=== PATIENT | male | born 1945 | race Caucasian/White ===

== ENCOUNTER 2017-07-08 07:00 | Inpatient (IN) | payer OTHER, MEDICARE ==
[2017-07-07 12:45] LABS: BASOPHILS % (AUTO) 0.5 % (0-1); EOSINOPHILS # (AUTO) 0.1 X10'3 (0-0.9); EOSINOPHILS % (AUTO) 1.6 % (0-6); HEMATOCRIT 43.9 % (42.0-52.0); HEMOGLOBIN 15.3 g/dl (14.0-17.9); LYMPHOCYTES # (AUTO) 1.1 X10'3 (1.1-4.8); LYMPHOCYTES % (AUTO) 18.8 % (21-51); MEAN CORPUSCULAR HEMOGLOBIN 32.2 PG (27.0-31.0); MEAN CORPUSCULAR HGB CONC 34.9 % (33.0-36.5); MEAN CORPUSCULAR VOLUME 92.3 FL (78-98); MEAN PLATELET VOLUME 9.1 FL (7.4-10.4); MONOCYTES # (AUTO) 0.3 X10'3 (0-0.9); MONOCYTES % (AUTO) 5.6 % (2-12); NEUTROPHILS # (AUTO) 4.2 X10'3 (1.8-7.7); NEUTROPHILS % (AUTO) 73.5 % (42-75); PLATELET COUNT 135 X10'3 (140-440); RED BLOOD COUNT 4.76 X10'6 (4.70-6.10); RED CELL DISTRIBUTION WIDTH 12.6 % (11.5-14.5); WHITE BLOOD COUNT 5.7 X10'3 (4.5-11.0)
[2017-07-07 12:52] LABS: INR 1.1 INR; PARTIAL THROMBOPLASTIN TIME 26 SECONDS (22-32); PROTHROMBIN TIME 10.9 SECONDS (9.0-12.0)
[2017-07-07 12:53] LABS: ALBUMIN 3.9 G/DL (3.4-5.0); ANION GAP 8 (8-16); BLOOD UREA NITROGEN 17 MG/DL (7-18); CALCIUM 8.6 MG/DL (8.5-10.1); CHLORIDE 107 MMOL/L (99-107); CREATININE 1.13 MG/DL (0.60-1.10); GLUCOSE 125 MG/DL (70-104); POTASSIUM 4.2 MMOL/L (3.5-5.1); SODIUM 145 MMOL/L (135-145); TOTAL CARBON DIOXIDE 30.4 MMOL/L (24-32); eGFR 64 ML/MIN
[2017-07-08] VITALS (21 sets, daily range): BP systolic 96–154; BP diastolic 44–76
[~2017-07-08] VITALS: Ht 177.8 cm; Wt 95.6 kg
[2017-07-08] MEDS ORDERED: ASPI-1265 PO (07:30)
[2017-07-08] MEDS ORDERED: AMLO1TAB PO (07:30)
[2017-07-08] MEDS ORDERED: PANT-47 PO (07:30)
[2017-07-08] MEDS ORDERED: DOXA4TAB3 PO (07:30)
[2017-07-08] MEDS ORDERED: VALS1TAB48 PO (07:30)
[2017-07-08] MEDS ORDERED: OMEG1CAP PO (07:30)
[2017-07-08] MEDS ORDERED: acetylcysteine 200 MG/ml 4ml vial PO PRN (07:46)
[2017-07-08] MEDS ORDERED: diphenhydrAMINE 25mg capsule PO PRN (07:50)
[2017-07-08] MEDS ORDERED: LORazepam 0.5 MG tablet PO ONE (08:45)
[2017-07-08] MEDS: normal saline 1000ml 1,000 ML IV SCH ×2 (09:06→15:36)
[2017-07-08] MEDS ORDERED: midazolam 2 mg/2 ml injection ONE (11:14)
[2017-07-08] MEDS ORDERED: nitroGLYCERIN-Tridil 50MG/D5W 250 ML IV ONE (11:14)
[2017-07-08] MEDS ORDERED: heparin 1,000unit/ml 10ml vial 10 ML ONE (11:15)
[2017-07-08] MEDS ORDERED: LIDOcaine 1%/PF (10mg/ml) 5ml vial ONE ×2 (11:15→11:50)
[2017-07-08] MEDS ORDERED: iohexol 350MG/ML 100ml bottle IV ONE ×3 (11:15→12:33)
[2017-07-08] MEDS ORDERED: iohexol 350 MG/ML 50ML vial IV ONE ×2 (11:15→13:11)
[2017-07-08] MEDS ORDERED: fentaNYL/PF 50MCG/1 ML 2ML syringe ONE (11:15)
[2017-07-08] MEDS ORDERED: atropine 0.1mg/ml 10ml syringe ONE (11:49)
[2017-07-08] MEDS ORDERED: heparin 1,000 UNITS/NS 500ml 500 ML ONE (12:29)
[2017-07-08] MEDS ORDERED: DOPamine 400mg/D5W 250ml 250 ML IV ONE (12:48)
[2017-07-08] MEDS ORDERED: clopidogrel 300mg tablet ONE (13:44)
[2017-07-08] MEDS ORDERED: ticagrelor 90mg tablet ONE (13:51)
[2017-07-08] MEDS ORDERED: ticagrelor 90mg tablet PO ONE (14:00)
[2017-07-08] MEDS ORDERED: heparin 10,000 units/1 ML INJ IV ONE (14:40)
[2017-07-08] MEDS ORDERED: heparin 10,000 units/1 ML INJ IV PRN (14:40)
[2017-07-08] MEDS ORDERED: aspirin 325mg tablet PO ONE (14:45)
[2017-07-08] MEDS ORDERED: magnesium hydroxide 30ml (MOM) UD suspension PO PRN (14:50)
[2017-07-08] MEDS ORDERED: OXAZEpam 15mg capsule PO PRN (14:50)
[2017-07-08] MEDS ORDERED: acetaminophen 325mg tablet PO PRN (14:50)
[2017-07-08] MEDS ORDERED: proCHLORperazine 10 MG/2 ml inj IV PRN (14:50)
[2017-07-08] MEDS ORDERED: cyclobenzaprine 10mg tablet PO PRN (14:50)
[2017-07-08 15:25] LABS: ISTAT HGB ART 13.9 g/dl (14.0-18.0); ISTAT Hct ART 41 %PCV (42-52); ISTAT O2 SATURATION ARTERIAL 95 % (95-98); ISTAT SOURCE ART
[2017-07-08 15:25] LABS: ISTAT Hct MIX 42 %PCV (42-52); ISTAT O2 SATURATION MIX VENOUS 77 % (60-80); ISTAT SOURCE MIX
[2017-07-08] MEDS: DOPamine 400MG/D5W 250ML CRITICAL CARE IV SCH (15:50)
[2017-07-08 18:42] LABS: BASOPHILS % (AUTO) 0.2 % (0-1); EOSINOPHILS # (AUTO) 0.1 X10'3 (0-0.9); EOSINOPHILS % (AUTO) 1.1 % (0-6); HEMATOCRIT 46.5 % (42.0-52.0); HEMOGLOBIN 16.1 g/dl (14.0-17.9); LYMPHOCYTES # (AUTO) 0.8 X10'3 (1.1-4.8); LYMPHOCYTES % (AUTO) 8.8 % (21-51); MEAN CORPUSCULAR HEMOGLOBIN 31.9 PG (27.0-31.0); MEAN CORPUSCULAR HGB CONC 34.7 % (33.0-36.5); MEAN CORPUSCULAR VOLUME 92.1 FL (78-98); MEAN PLATELET VOLUME 8.5 FL (7.4-10.4); MONOCYTES # (AUTO) 0.4 X10'3 (0-0.9); MONOCYTES % (AUTO) 4.4 % (2-12); NEUTROPHILS # (AUTO) 8.3 X10'3 (1.8-7.7); NEUTROPHILS % (AUTO) 85.5 % (42-75); PLATELET COUNT 148 X10'3 (140-440); RED BLOOD COUNT 5.06 X10'6 (4.70-6.10); RED CELL DISTRIBUTION WIDTH 12.8 % (11.5-14.5); WHITE BLOOD COUNT 9.7 X10'3 (4.5-11.0)
[2017-07-08] MEDS: docusate sod 100mg capsule PO SCH (20:00)
[2017-07-08] MEDS: ticagrelor 90mg tablet PO SCH (20:53)
[2017-07-08] MEDS: omega-3 acid ethyl esters 1GM capsule PO SCH (20:53)
[2017-07-09] VITALS (20 sets, daily range): BP systolic 93–153; BP diastolic 45–73
[2017-07-09] MEDS: normal saline 1000ml 1,000 ML IV SCH (03:50)
[2017-07-09] MEDS ORDERED: fentaNYL/PF 50MCG/1 ML 2ML syringe ONE (06:18)
[2017-07-09] MEDS ORDERED: midazolam 2 mg/2 ml injection ONE (06:18)
[2017-07-09] MEDS ORDERED: nitroGLYCERIN-Tridil 50MG/D5W 250 ML IV ONE (06:18)
[2017-07-09] MEDS ORDERED: iohexol 350 MG/1 ML 200ml bottle ONE (06:19)
[2017-07-09] MEDS ORDERED: heparin 1,000unit/ml 10ml vial 10 ML ONE (06:19)
[2017-07-09] MEDS ORDERED: LIDOcaine 1%/PF (10mg/ml) 5ml vial ONE (06:19)
[2017-07-09] MEDS: DOPamine 400MG/D5W 250ML CRITICAL CARE IV SCH (06:30)
[2017-07-09 06:35] LABS: BASOPHILS % (AUTO) 0 % (0-1); EOSINOPHILS % (AUTO) 0.1 % (0-6); HEMATOCRIT 42.1 % (42.0-52.0); HEMOGLOBIN 14.9 g/dl (14.0-17.9); LYMPHOCYTES # (AUTO) 0.8 X10'3 (1.1-4.8); LYMPHOCYTES % (AUTO) 8.6 % (21-51); MEAN CORPUSCULAR HEMOGLOBIN 32.3 PG (27.0-31.0); MEAN CORPUSCULAR HGB CONC 35.4 % (33.0-36.5); MEAN CORPUSCULAR VOLUME 91.2 FL (78-98); MEAN PLATELET VOLUME 8.7 FL (7.4-10.4); MONOCYTES # (AUTO) 0.5 X10'3 (0-0.9); MONOCYTES % (AUTO) 4.7 % (2-12); NEUTROPHILS # (AUTO) 8.3 X10'3 (1.8-7.7); NEUTROPHILS % (AUTO) 86.6 % (42-75); PLATELET COUNT 144 X10'3 (140-440); RED BLOOD COUNT 4.62 X10'6 (4.70-6.10); RED CELL DISTRIBUTION WIDTH 12.5 % (11.5-14.5); WHITE BLOOD COUNT 9.6 X10'3 (4.5-11.0)
[2017-07-09] MEDS ORDERED: atropine 0.1mg/ml 10ml syringe ONE (06:47)
[2017-07-09 06:56] LABS: ALBUMIN 3.4 G/DL (3.4-5.0); ANION GAP 9 (8-16); BLOOD UREA NITROGEN 17 MG/DL (7-18); BUN/CREATININE RATIO 15.6 (5.4-32.0); CALCIUM 8.3 MG/DL (8.5-10.1); CHLORIDE 108 MMOL/L (99-107); CHOL/HDL RATIO 2.6 (0.00-4.99); CHOLESTEROL 105 MG/DL (0-200); CREATININE 1.09 MG/DL (0.60-1.10); GLUCOSE 103 MG/DL (70-104); HDL CHOLESTEROL 40 MG/DL (35-60); LDL CHOLESTEROL 56 MG/DL (50-100); POTASSIUM 3.4 MMOL/L (3.5-5.1); SODIUM 144 MMOL/L (135-145); TOTAL CARBON DIOXIDE 26.9 MMOL/L (24-32); TRIGLYCERIDES 53 MG/DL (20-135); eGFR 67 ML/MIN
[2017-07-09] MEDS ORDERED: ticagrelor 90mg tablet ONE (07:17)
[2017-07-09] MEDS ORDERED: HYDROchlorothiazide 12.5mg capsule PO SCH (08:00)
[2017-07-09] MEDS ORDERED: amLODIPine 5mg tablet PO SCH (08:00)
[2017-07-09] MEDS: ticagrelor 90mg tablet PO SCH (08:00)
[2017-07-09] MEDS ORDERED: HYDROCHLOROTHIAZIDE PO SCH (08:00)
[2017-07-09] MEDS ORDERED: atorvastatin 10mg tablet PO SCH (08:00)
[2017-07-09] MEDS ORDERED: VALSARTAN PO SCH (08:00)
[2017-07-09] MEDS ORDERED: doxazosin mesylate 2mg tablet PO SCH (08:00)
[2017-07-09] MEDS ORDERED: aspirin 81mg tab.chew PO SCH (08:00)
[2017-07-09] MEDS ORDERED: pantoprazole 40mg Tablet.DR PO SCH (08:00)
[2017-07-09] MEDS ORDERED: iohexol 350MG/ML 100ml bottle IV ONE (08:02)
[2017-07-09] MEDS ORDERED: aspirin 325mg tablet PO SCH (08:30)
[2017-07-09] MEDS: docusate sod 100mg capsule PO SCH (09:02)
[2017-07-09] MEDS: omega-3 acid ethyl esters 1GM capsule PO SCH (09:03)
[2017-07-09] MEDS ORDERED: ATOR10TA PO (09:24)
[2017-07-09] MEDS ORDERED: TICA90TA PO (09:24)
== END 2017-07-09 17:30 | disposition home or self-care (01) | DRG 246 ==
LOC: SSTAY O 07:00 → ICU 2S 18:03
PROVIDERS: ADMIT Internal Medicine Cardiovascular Disease; ATTEND Internal Medicine Cardiovascular Disease
PROC: 4A023N8 Measurement of Cardiac Sampling and Pressure, Bilateral, Percutaneous Approach (ICD-10-PCS; principal; 2017-07-08)
PROC: 027034Z Dilation of Coronary Artery, One Artery with Drug-eluting Intraluminal Device, Percutaneous Approach (ICD-10-PCS; 2017-07-08)
PROC: B2111ZZ Fluoroscopy of Multiple Coronary Arteries using Low Osmolar Contrast (ICD-10-PCS; 2017-07-08)
PROC: B2151ZZ Fluoroscopy of Left Heart using Low Osmolar Contrast (ICD-10-PCS; 2017-07-08)
PROC: B2131ZZ Fluoroscopy of Multiple Coronary Artery Bypass Grafts using Low Osmolar Contrast (ICD-10-PCS; 2017-07-08)
PROC: 027136Z Dilation of Coronary Artery, Two Arteries with Three Drug-eluting Intraluminal Devices, Percutaneous Approach (ICD-10-PCS; 2017-07-09)
DX: I25.10 Atherosclerotic heart disease of native coronary artery without angina pectoris (principal); E78.5 Hyperlipidemia, unspecified; K21.9 Gastro-esophageal reflux disease without esophagitis; M19.90 Unspecified osteoarthritis, unspecified site; G47.30 Sleep apnea, unspecified; I10 Essential (primary) hypertension; Z79.82 Long term (current) use of aspirin; Z79.899 Other long term (current) drug therapy; Z95.1 Presence of aortocoronary bypass graft; Z88.5 Allergy status to narcotic agent
CPT/HCPCS: 93461; C9600; C9604; C9605; 36415; 80048; 80061; 82803; 85014; 85025; 85347; 85610; 85730; 93005; 99152; 99153; A4620; A6257; A6449; C1725; C1760; C1769; C1874; C1887; C1894; J0461; J0780; J1265; J1644; J2001; J2250; J3010; J3490; J7030; Q0163; Q9967

== ENCOUNTER 2018-06-30 06:03 | Day surgery (SDC) | payer OTHER, MEDICARE ==
[2018-06-29 11:10] LABS: BASOPHILS % (AUTO) 0.7 % (0-1); EOSINOPHILS % (AUTO) 0.7 % (0-6); HEMATOCRIT 44.7 % (42.0-52.0); HEMOGLOBIN 15.6 g/dl (14.0-17.9); LYMPHOCYTES # (AUTO) 0.9 X10'3 (1.1-4.8); LYMPHOCYTES % (AUTO) 14.8 % (21-51); MEAN CORPUSCULAR HEMOGLOBIN 32.4 PG (27.0-31.0); MEAN CORPUSCULAR VOLUME 92.5 FL (78-98); MEAN PLATELET VOLUME 8.7 FL (7.4-10.4); MONOCYTES # (AUTO) 0.4 X10'3 (0-0.9); MONOCYTES % (AUTO) 6.9 % (2-12); NEUTROPHILS # (AUTO) 4.5 X10'3 (1.8-7.7); NEUTROPHILS % (AUTO) 76.9 % (42-75); PLATELET COUNT 149 X10'3 (140-440); RED BLOOD COUNT 4.83 X10'6 (4.70-6.10); RED CELL DISTRIBUTION WIDTH 12.8 % (11.5-14.5); WHITE BLOOD COUNT 5.9 X10'3 (4.5-11.0)
[2018-06-29 11:15] LABS: ALBUMIN 3.9 G/DL (3.4-5.0); ANION GAP 4 (8-16); BLOOD UREA NITROGEN 16 MG/DL (7-18); BUN/CREATININE RATIO 14.5 (5.4-32.0); CHLORIDE 107 MMOL/L (99-107); GLUCOSE 112 MG/DL (70-104); POTASSIUM 4.1 MMOL/L (3.5-5.1); SODIUM 144 MMOL/L (135-145); TOTAL CARBON DIOXIDE 32.9 MMOL/L (24-32); eGFR 66 ML/MIN
[2018-06-29 11:25] LABS: INR 1.1 INR; PARTIAL THROMBOPLASTIN TIME 25 SECONDS (22-32); PROTHROMBIN TIME 11.1 SECONDS (9.0-12.0)
[~2018-06-30] VITALS: Ht 177.8 cm; Wt 96.4 kg
[2018-06-30] VITALS (21 sets, daily range): BP systolic 95–141; BP diastolic 46–86
[~2018-06-30 06:03] MED LIST: AMLO1TAB62 PO; ASPI-1265 PO; ATOR10TA PO; DOXA4TAB3 PO; OMEG1CAP PO; PANT-47 PO; TICA90TA PO; VALS1TAB48 PO
[2018-06-30] MEDS ORDERED: diphenhydrAMINE 25mg capsule PO PRN (06:20)
[2018-06-30] MEDS ORDERED: acetylcysteine 200 MG/ml 4ml vial PO ONE (06:20)
[2018-06-30] MEDS ORDERED: PRAS10TA6 PO (06:28)
[2018-06-30] MEDS ORDERED: LORazepam 0.5 MG tablet PO PRN (06:30)
[2018-06-30] MEDS ORDERED: LIDOcaine 1% (10mg/ml)w/preservative injection 20ml MDV ONE (07:44)
[2018-06-30] MEDS ORDERED: iohexol 350MG/ML 100ml bottle IV ONE ×4 (07:44→09:14)
[2018-06-30] MEDS ORDERED: fentaNYL/PF 50MCG/1 ML 2ML syringe ONE (07:44)
[2018-06-30] MEDS ORDERED: iohexol 350 MG/ML 50ML vial IV ONE (07:44)
[2018-06-30] MEDS ORDERED: nitroGLYCERIN-Tridil 50MG/D5W 250 ML IV ONE (07:44)
[2018-06-30] MEDS ORDERED: heparin 1,000unit/ml 10ml vial 10 ML ONE ×2 (07:44→09:07)
[2018-06-30] MEDS ORDERED: midazolam 2 mg/2 ml injection ONE ×2 (07:44→09:14)
[2018-06-30] MEDS ORDERED: heparin 25,000 UNIT/250ml bag 250 ML IV ONE (08:57)
[2018-06-30] MEDS ORDERED: clopidogrel 300mg tablet ONE ×2 (09:34→09:48)
[2018-06-30] MEDS ORDERED: normal saline 1000ml 1,000 ML IV ONE (10:30)
[2018-06-30] MEDS ORDERED: acetaminophen 325mg tablet PO PRN (10:35)
[2018-06-30] MEDS ORDERED: magnesium hydroxide 30ml (MOM) UD suspension PO PRN (10:35)
[2018-06-30] MEDS ORDERED: aspirin 325mg tablet PO ONE (10:35)
[2018-06-30] MEDS ORDERED: cyclobenzaprine 10mg tablet PO PRN (10:35)
[2018-06-30] MEDS ORDERED: proCHLORperazine 10 MG/2 ml inj IV PRN (10:35)
[2018-06-30] MEDS ORDERED: OXAZEpam 15mg capsule PO PRN (10:35)
[2018-06-30] MEDS ORDERED: HYDROcodone/acetaminophen 10/325mg tab PO PRN ×2 (11:55)
--- NOTE | 2018-06-30 17:15 | NUR ---
Problems reprioritized. Patient report given, questions answered & plan of care reviewed with RANDY PÉREZ.
[2018-06-30] MEDS ORDERED: docusate sod 100mg capsule PO SCH (20:00)
[2018-06-30] MEDS ORDERED: acetylcysteine 200 MG/ml 4ml vial PO SCH (20:00)
[2018-07-01] MEDS ORDERED: aspirin 325mg tablet PO SCH (08:00)
[2018-07-01] MEDS ORDERED: PRASUGREL 10 MG PO SCH (08:00)
== END 2018-06-30 19:25 | disposition home or self-care (01) ==
LOC: SSTAY O 06:03
PROVIDERS: ATTEND Internal Medicine Cardiovascular Disease
DX: I10 Essential (primary) hypertension (principal); E78.5 Hyperlipidemia, unspecified; I25.10 Atherosclerotic heart disease of native coronary artery without angina pectoris; Z95.1 Presence of aortocoronary bypass graft; K21.9 Gastro-esophageal reflux disease without esophagitis; Z88.5 Allergy status to narcotic agent
CPT/HCPCS: 36415; 80048; 85025; 85347; 85610; 85730; 92920; 93005; 93459; 99152; 99153; A6257; J1644; J2001; J2250; J3010; J7030; Q0163; Q9967; A4620; C1725; C1769; C1894; J3490

== ENCOUNTER 2019-07-06 08:48 | Day surgery (SDC) | payer OTHER, MEDICARE ==
[2019-07-05 12:26] LABS: BASOPHILS % (AUTO) 0.4 % (0-1); EOSINOPHILS # (AUTO) 0.1 X10'3 (0-0.9); EOSINOPHILS % (AUTO) 0.9 % (0-6); HEMATOCRIT 44.4 % (42.0-52.0); HEMOGLOBIN 15.5 g/dl (14.0-17.9); LYMPHOCYTES % (AUTO) 17.2 % (21-51); MEAN CORPUSCULAR HEMOGLOBIN 32.4 PG (27.0-31.0); MEAN CORPUSCULAR HGB CONC 34.9 g/dL (33.0-36.5); MEAN CORPUSCULAR VOLUME 92.8 FL (78-98); MEAN PLATELET VOLUME 9.1 FL (7.4-10.4); MONOCYTES # (AUTO) 0.4 X10'3 (0-0.9); MONOCYTES % (AUTO) 6.2 % (2-12); NEUTROPHILS # (AUTO) 4.3 X10'3 (1.8-7.7); NEUTROPHILS % (AUTO) 75.3 % (42-75); PLATELET COUNT 134 X10'3 (140-440); RED BLOOD COUNT 4.78 X10'6 (4.70-6.10); RED CELL DISTRIBUTION WIDTH 12.8 % (11.5-14.5); WHITE BLOOD COUNT 5.7 X10'3 (4.5-11.0)
[2019-07-05 12:34] LABS: ALBUMIN 3.9 G/DL (3.4-5.0); ANION GAP 6 (8-16); BLOOD UREA NITROGEN 17 MG/DL (7-18); BUN/CREATININE RATIO 16.3 (5.4-32.0); CALCIUM 8.2 MG/DL (8.5-10.1); CHLORIDE 107 MMOL/L (99-107); CREATININE 1.04 MG/DL (0.60-1.10); GLUCOSE 144 MG/DL (70-104); POTASSIUM 3.8 MMOL/L (3.5-5.1); SODIUM 144 MMOL/L (135-145); TOTAL CARBON DIOXIDE 30.8 MMOL/L (24-32); eGFR 70 ML/MIN
[2019-07-05 12:38] LABS: PARTIAL THROMBOPLASTIN TIME 26 SECONDS (22-32)
[2019-07-06] VITALS (9 sets, daily range): BP systolic 108–131; BP diastolic 42–67
[~2019-07-06] VITALS: Ht 177.8 cm; Wt 96.7 kg
[~2019-07-06 08:48] MED LIST changes: -ATOR10TA PO; +PRAS10TA6 PO; -TICA90TA PO
[2019-07-06] MEDS ORDERED: cefazolin/dext.iso 2gm/100ml 100 ML IV ONE (09:10)
[2019-07-06] MEDS ORDERED: normal saline 1000ml 1,000 ML IV SCH (09:10)
[2019-07-06] MEDS ORDERED: VITA-268 PO (09:22)
[2019-07-06] MEDS ORDERED: TADA5TAB2 PO (09:22)
[2019-07-06] MEDS ORDERED: CYAN1TAB41 PO (09:22)
[2019-07-06] MEDS ORDERED: OLME1TAB84 PO (09:22)
[2019-07-06] MEDS ORDERED: APIX5TAB3 PO (09:22)
[2019-07-06] MEDS ORDERED: AMLO1TAB23 PO (09:22)
[2019-07-06] MEDS ORDERED: midazolam 2 mg/2 ml injection ONE ×2 (13:10→14:37)
[2019-07-06] MEDS ORDERED: fentaNYL/PF 50MCG/1 ML 2ML syringe ONE ×2 (13:10→14:37)
[2019-07-06] MEDS ORDERED: ceFAZolin 1000mg inj ONE (13:10)
[2019-07-06] MEDS ORDERED: LIDOcaine 1% W/epiNEPHrine 1:100,000 20ml vial ONE (13:11)
[2019-07-06] MEDS ORDERED: diphenhydrAMINE 50 mg/ml inj ONE (14:11)
[2019-07-06] MEDS ORDERED: vancomycin/NS 1 GM ADD-VANTAGE 250 ML X 1 DOSE IV ONE (16:00)
--- NOTE | 2019-07-06 20:36 | NUR ---
Patient called back and stated that his prescription was not faxed. I asked if he could hand them over the physical prescription (yellow sheet) and he said no the pharmacist would not take it. I called his requested pharmacy [facility] on [address], and spoke with pharmacist over the phone, called in his sotalol and keflex orders per dr. parker. Patients was notified that they were personally called in.
== END 2019-07-06 20:00 | disposition home or self-care (01) ==
LOC: SSTAY O 08:48
PROVIDERS: ATTEND Internal Medicine Cardiovascular Disease
DX: I49.5 Sick sinus syndrome (principal); I48.91 Unspecified atrial fibrillation; I10 Essential (primary) hypertension; I48.3 Typical atrial flutter; I25.10 Atherosclerotic heart disease of native coronary artery without angina pectoris; I25.2 Old myocardial infarction; E78.5 Hyperlipidemia, unspecified; K21.9 Gastro-esophageal reflux disease without esophagitis; I48.92 Unspecified atrial flutter; Z79.899 Other long term (current) drug therapy; Z95.5 Presence of coronary angioplasty implant and graft; Z88.6 Allergy status to analgesic agent; Z98.890 Other specified postprocedural states
CPT/HCPCS: 33208; 36415; 71046; 80048; 85025; 85610; 85730; 93005; 99152; 99153; C1785; C1894; C1898; J0690; J1200; J2250; J3010; J3370; J7030; A4565; A4620

== ENCOUNTER 2019-07-27 07:44 | Day surgery (SDC) | payer OTHER, MEDICARE ==
[2019-07-26 10:28] LABS: BASOPHILS % (AUTO) 0.5 % (0-1); EOSINOPHILS # (AUTO) 0.1 X10'3 (0-0.9); EOSINOPHILS % (AUTO) 1.8 % (0-6); HEMATOCRIT 47.3 % (42.0-52.0); HEMOGLOBIN 16.3 g/dl (14.0-17.9); LYMPHOCYTES # (AUTO) 1.2 X10'3 (1.1-4.8); LYMPHOCYTES % (AUTO) 17.5 % (21-51); MEAN CORPUSCULAR HEMOGLOBIN 32.4 PG (27.0-31.0); MEAN CORPUSCULAR HGB CONC 34.5 g/dL (33.0-36.5); MEAN CORPUSCULAR VOLUME 93.7 FL (78-98); MONOCYTES # (AUTO) 0.5 X10'3 (0-0.9); NEUTROPHILS # (AUTO) 4.9 X10'3 (1.8-7.7); NEUTROPHILS % (AUTO) 73.2 % (42-75); PLATELET COUNT 156 X10'3 (140-440); RED BLOOD COUNT 5.04 X10'6 (4.70-6.10); RED CELL DISTRIBUTION WIDTH 12.5 % (11.5-14.5); WHITE BLOOD COUNT 6.7 X10'3 (4.5-11.0)
[2019-07-26 10:38] LABS: ALBUMIN 3.9 G/DL (3.4-5.0); ANION GAP 3 (8-16); BLOOD UREA NITROGEN 17 MG/DL (7-18); BUN/CREATININE RATIO 12.6 (5.4-32.0); CALCIUM 8.7 MG/DL (8.5-10.1); CHLORIDE 105 MMOL/L (99-107); CREATININE 1.35 MG/DL (0.60-1.10); GLUCOSE 101 MG/DL (70-104); POTASSIUM 3.6 MMOL/L (3.5-5.1); SODIUM 142 MMOL/L (135-145); TOTAL CARBON DIOXIDE 34.5 MMOL/L (24-32); eGFR 52 ML/MIN
[~2019-07-27] VITALS: Ht 177.8 cm; Wt 95.3 kg
[2019-07-27] VITALS (12 sets, daily range): BP systolic 94–118; BP diastolic 54–76
[~2019-07-27 07:44] MED LIST changes: +AMLO1TAB23 PO; -AMLO1TAB62 PO; +APIX5TAB3 PO; +CYAN1TAB41 PO; +OLME1TAB84 PO; -PRAS10TA6 PO; +TADA5TAB2 PO; -VALS1TAB48 PO; +VITA-268 PO
[2019-07-27] MEDS ORDERED: LORazepam 0.5 MG tablet PO ONE (08:00)
[2019-07-27] MEDS ORDERED: atropine 0.1mg/ml 10ml syringe IV ONE (08:00)
[2019-07-27] MEDS ORDERED: morphine 10mg/ml inj. IV ONE (08:00)
[2019-07-27] MEDS ORDERED: normal saline 1000ml 1,000 ML IV SCH (08:00)
[2019-07-27] MEDS ORDERED: amiodarone in dextrose, iso-osm 150mg/100ml bag IV ONE (08:00)
[2019-07-27] MEDS ORDERED: diphenhydrAMINE 25mg capsule PO ONE (08:00)
[2019-07-27] MEDS ORDERED: MIDAZolam 1mg/ml 10ml vial IV ONE (08:00)
[2019-07-27] MEDS ORDERED: PRAS10TA6 PO (08:32)
[2019-07-27] MEDS ORDERED: SOTA80TA PO (08:33)
== END 2019-07-27 11:05 | disposition home or self-care (01) ==
LOC: SSTAY O 07:44 → MED 3N 07:44 → SSTAY O 11:05
PROVIDERS: ATTEND Internal Medicine Cardiovascular Disease
DX: I48.3 Typical atrial flutter (principal); E78.5 Hyperlipidemia, unspecified; I10 Essential (primary) hypertension; I49.5 Sick sinus syndrome; M19.90 Unspecified osteoarthritis, unspecified site; K21.9 Gastro-esophageal reflux disease without esophagitis; Z95.5 Presence of coronary angioplasty implant and graft; Z95.0 Presence of cardiac pacemaker; I25.2 Old myocardial infarction; Z85.46 Personal history of malignant neoplasm of prostate; Z79.899 Other long term (current) drug therapy; Z88.5 Allergy status to narcotic agent
CPT/HCPCS: 36415; 80048; 85025; 85610; 92960; 93005; J2250; J2270; GO378

== ENCOUNTER 2019-08-23 11:28 | Outpatient (CLI) | payer OTHER, MEDICARE ==
[~2019-08-23 11:28] MED LIST changes: -ASPI-1265 PO; +PRAS10TA6 PO; +SOTA80TA PO
== END 2019-08-23 23:59 | disposition home or self-care (01) ==
LOC: RAD 11:28
PROVIDERS: ATTEND Internal Medicine Cardiovascular Disease
DX: R06.02 Shortness of breath (principal)
CPT/HCPCS: 71046

== ENCOUNTER 2019-10-05 06:55 | Day surgery (SDC) | payer OTHER, MEDICARE ==
[2019-10-04 15:00] LABS: BASOPHILS % (AUTO) 0.3 % (0-1); EOSINOPHILS # (AUTO) 0.1 X10'3 (0-0.9); EOSINOPHILS % (AUTO) 0.9 % (0-6); HEMATOCRIT 43.4 % (42.0-52.0); HEMOGLOBIN 14.8 g/dl (14.0-17.9); LYMPHOCYTES # (AUTO) 1.3 X10'3 (1.1-4.8); LYMPHOCYTES % (AUTO) 18.6 % (21-51); MEAN CORPUSCULAR HEMOGLOBIN 32.2 PG (27.0-31.0); MEAN CORPUSCULAR HGB CONC 34.1 g/dL (33.0-36.5); MEAN CORPUSCULAR VOLUME 94.5 FL (78-98); MEAN PLATELET VOLUME 9.1 FL (7.4-10.4); MONOCYTES # (AUTO) 0.4 X10'3 (0-0.9); MONOCYTES % (AUTO) 6.5 % (2-12); NEUTROPHILS # (AUTO) 5.1 X10'3 (1.8-7.7); NEUTROPHILS % (AUTO) 73.7 % (42-75); PLATELET COUNT 138 X10'3 (140-440); RED BLOOD COUNT 4.59 X10'6 (4.70-6.10); RED CELL DISTRIBUTION WIDTH 12.8 % (11.5-14.5); WHITE BLOOD COUNT 6.9 X10'3 (4.5-11.0)
[2019-10-04 15:11] LABS: ANION GAP 7 (8-16); BLOOD UREA NITROGEN 13 MG/DL (7-18); BUN/CREATININE RATIO 13.7 (5.4-32.0); CALCIUM 8.9 MG/DL (8.5-10.1); CHLORIDE 107 MMOL/L (99-107); CREATININE 0.95 MG/DL (0.60-1.10); GLUCOSE 96 MG/DL (70-104); POTASSIUM 3.6 MMOL/L (3.5-5.1); SODIUM 146 MMOL/L (135-145); TOTAL CARBON DIOXIDE 31.8 MMOL/L (24-32); eGFR 78 ML/MIN
[2019-10-04 15:13] LABS: PARTIAL THROMBOPLASTIN TIME 26 SECONDS (22-32)
[~2019-10-05] VITALS: Ht 182.9 cm; Wt 96.0 kg
[2019-10-05] VITALS (11 sets, daily range): BP systolic 102–139; BP diastolic 40–68
[2019-10-05] MEDS ORDERED: cefazolin/dext.iso 2gm/50ml 50 ML IV ONE (07:20)
[2019-10-05] MEDS ORDERED: normal saline 1,000 ML IV SCH (07:20)
[2019-10-05] MEDS ORDERED: ASPI81TA52 PO (07:38)
[2019-10-05] MEDS ORDERED: HYDR12.55 PO (07:38)
[2019-10-05] MEDS ORDERED: LOSA25TA96 PO (07:38)
[2019-10-05] MEDS ORDERED: ceFAZolin 1000mg inj ONE (08:30)
[2019-10-05] MEDS ORDERED: midazolam 2 mg/2 ml injection ONE (08:30)
[2019-10-05] MEDS ORDERED: fentaNYL/PF 50MCG/1 ML 2ML syringe ONE (08:30)
[2019-10-05] MEDS ORDERED: LIDOcaine 1% W/epiNEPHrine 1:100,000 20ml vial ONE (08:30)
[2019-10-05] MEDS ORDERED: HYDROcodone/acetaminophen 10/325mg tab PO PRN (11:00)
[2019-10-05] MEDS ORDERED: HYDROcodone/acetaminophen 5mg/325mg tablet PO PRN (11:00)
[2019-10-05] MEDS ORDERED: vancomycin/NS 1 GM ADD-VANTAGE 250 ML X 1 DOSE IV ONE (11:00)
== END 2019-10-05 14:55 | disposition home or self-care (01) ==
LOC: SSTAY O 06:55
PROVIDERS: ATTEND Internal Medicine Cardiovascular Disease
DX: T82.190A Other mechanical complication of cardiac electrode, initial encounter (principal); I49.5 Sick sinus syndrome; I10 Essential (primary) hypertension; E78.5 Hyperlipidemia, unspecified; I25.10 Atherosclerotic heart disease of native coronary artery without angina pectoris; M19.90 Unspecified osteoarthritis, unspecified site; I48.3 Typical atrial flutter; K21.9 Gastro-esophageal reflux disease without esophagitis; Z85.46 Personal history of malignant neoplasm of prostate; Z95.5 Presence of coronary angioplasty implant and graft; Z95.0 Presence of cardiac pacemaker; Z79.82 Long term (current) use of aspirin; Z88.5 Allergy status to narcotic agent; Z79.01 Long term (current) use of anticoagulants; Z79.899 Other long term (current) drug therapy; Y83.8 Other surgical procedures as the cause of abnormal reaction of the patient, or of later complication, without mention of misadventure at the time of the procedure; Y92.89 Other specified places as the place of occurrence of the external cause
CPT/HCPCS: 33215; 36415; 80048; 85025; 85610; 85730; 99152; 99153; J0690; J2250; J3010; J3370; J7030; A4565; A4620; A6449

== ENCOUNTER 2020-01-11 12:20 | Emergency (ER) | payer OTHER, MEDICARE ==
[~2020-01-11] VITALS: Ht 177.8 cm; Wt 96.7 kg
[~2020-01-11 12:20] MED LIST changes: +ASPI81TA52 PO; +HYDR12.55 PO; +LOSA25TA96 PO; -OLME1TAB84 PO; -PRAS10TA6 PO; -SOTA80TA PO; -TADA5TAB2 PO
[2020-01-11 13:36] LABS: BASOPHILS % (AUTO) 0.3 % (0-1); EOSINOPHILS % (AUTO) 0.6 % (0-6); HEMATOCRIT 44.6 % (42.0-52.0); HEMOGLOBIN 15.5 g/dl (14.0-17.9); LYMPHOCYTES % (AUTO) 12.6 % (21-51); MEAN CORPUSCULAR HEMOGLOBIN 32.5 PG (27.0-31.0); MEAN CORPUSCULAR HGB CONC 34.9 g/dL (33.0-36.5); MEAN PLATELET VOLUME 8.1 FL (7.4-10.4); MONOCYTES # (AUTO) 0.5 X10'3 (0-0.9); MONOCYTES % (AUTO) 5.8 % (2-12); NEUTROPHILS # (AUTO) 6.4 X10'3 (1.8-7.7); NEUTROPHILS % (AUTO) 80.7 % (42-75); PLATELET COUNT 140 X10'3 (140-440); RED BLOOD COUNT 4.79 X10'6 (4.70-6.10); RED CELL DISTRIBUTION WIDTH 12.6 % (11.5-14.5); WHITE BLOOD COUNT 7.9 X10'3 (4.5-11.0)
[2020-01-11 13:52] LABS: ALANINE AMINOTRANSFERASE 35 U/L (12-78); ALBUMIN 4.1 G/DL (3.4-5.0); ALBUMIN/GLOBULIN RATIO 1.4 (1.1-1.5); ALKALINE PHOSPHATASE 138 IU/L (46-116); ANION GAP 9 (8-16); ASPARTATE AMINO TRANSFERASE 20 U/L (10-37); BILIRUBIN,TOTAL 0.8 MG/DL (0.1-1.0); BLOOD UREA NITROGEN 27 MG/DL (7-18); BUN/CREATININE RATIO 30.7 (5.4-32.0); CALCIUM 9.1 MG/DL (8.5-10.1); CHLORIDE 104 MMOL/L (99-107); CREATININE 0.88 MG/DL (0.60-1.10); GLUCOSE 139 MG/DL (70-104); POTASSIUM 3.9 MMOL/L (3.5-5.1); SODIUM 141 MMOL/L (135-145); TOTAL CARBON DIOXIDE 28.5 MMOL/L (24-32); eGFR 85 ML/MIN
[2020-01-11 16:11] VITALS: BP 145/64
== END 2020-01-11 20:11 | disposition home or self-care (01) ==
LOC: ER 12:21
DX: R07.89 Other chest pain (principal); R42 Dizziness and giddiness; I48.91 Unspecified atrial fibrillation; I25.10 Atherosclerotic heart disease of native coronary artery without angina pectoris; I25.2 Old myocardial infarction; Z98.890 Other specified postprocedural states; Z88.5 Allergy status to narcotic agent; Z88.8 Allergy status to other drugs, medicaments and biological substances; Z79.82 Long term (current) use of aspirin; Z79.899 Other long term (current) drug therapy
CPT/HCPCS: 36415; 71045; 80053; 83880; 84484; 85025; 93005; 99285

== ENCOUNTER 2020-06-29 10:42 | Day surgery (SDC) | payer OTHER, MEDICARE ==
[2020-06-29] VITALS (12 sets, daily range): BP systolic 94–152; BP diastolic 43–66
[~2020-06-29] VITALS: Ht 177.8 cm; Wt 101.1 kg
[2020-06-29] MEDS ORDERED: TADA5TAB13 PO (11:35)
[2020-06-29] MEDS ORDERED: DILT-36 PO (11:35)
[2020-06-29] MEDS ORDERED: LOSA100T57 PO (11:35)
[2020-06-29 11:49] LABS: BASOPHILS % (AUTO) 0.6 % (0-1); EOSINOPHILS # (AUTO) 0.1 X10'3 (0-0.9); EOSINOPHILS % (AUTO) 1.4 % (0-6); HEMATOCRIT 41.9 % (42.0-52.0); HEMOGLOBIN 14.7 g/dl (14.0-17.9); LYMPHOCYTES # (AUTO) 1.2 X10'3 (1.1-4.8); LYMPHOCYTES % (AUTO) 18.4 % (21-51); MEAN CORPUSCULAR HEMOGLOBIN 32.4 PG (27.0-31.0); MEAN CORPUSCULAR HGB CONC 35.1 g/dL (33.0-36.5); MEAN CORPUSCULAR VOLUME 92.3 FL (78-98); MEAN PLATELET VOLUME 8.6 FL (7.4-10.4); MONOCYTES # (AUTO) 0.4 X10'3 (0-0.9); MONOCYTES % (AUTO) 5.9 % (2-12); NEUTROPHILS # (AUTO) 4.9 X10'3 (1.8-7.7); NEUTROPHILS % (AUTO) 73.7 % (42-75); PLATELET COUNT 138 X10'3 (140-440); RED BLOOD COUNT 4.53 X10'6 (4.70-6.10); RED CELL DISTRIBUTION WIDTH 12.3 % (11.5-14.5); WHITE BLOOD COUNT 6.7 X10'3 (4.5-11.0)
--- NOTE | 2020-06-29 13:13 | NUR ---
Dr. Recinos at bedside, orders received for fentanyl & Versed on standby for liver biopsy.
[2020-06-29] MEDS ORDERED: fentaNYL/PF 50MCG/1 ML 2ML syringe IV ONE (13:15)
[2020-06-29] MEDS ORDERED: MIDAZolam 1mg/ml 10ml vial IV ONE (13:15)
[2020-06-29] MEDS ORDERED: normal saline 1000ml 1,000 ML IV SCH (13:50)
== END 2020-06-29 16:30 | disposition home or self-care (01) ==
LOC: SSTAY O 10:42
PROVIDERS: ATTEND Radiology Diagnostic Radiology
DX: R94.5 Abnormal results of liver function studies (principal); Z88.5 Allergy status to narcotic agent; Z88.8 Allergy status to other drugs, medicaments and biological substances; Z79.899 Other long term (current) drug therapy; Z79.82 Long term (current) use of aspirin; Z79.01 Long term (current) use of anticoagulants; Z20.822 Contact with and (suspected) exposure to COVID-19
CPT/HCPCS: 36415; 47000; 76942; 85025; 85610; 87635; J2250; J3010

== ENCOUNTER 2020-09-09 18:14 | Emergency (ER) | payer OTHER, MEDICARE ==
[~2020-09-09] VITALS: Ht 177.8 cm; Wt 97.7 kg
[~2020-09-09 18:14] MED LIST changes: +DILT-36 PO; +LOSA100T57 PO; -LOSA25TA96 PO; +TADA5TAB13 PO
[2020-09-09 19:20] LABS: BASOPHILS % (AUTO) 0.1 % (0-1); EOSINOPHILS % (AUTO) 0 % (0-6); HEMATOCRIT 41.9 % (42.0-52.0); HEMOGLOBIN 14.7 g/dl (14.0-17.9); LYMPHOCYTES # (AUTO) 0.4 X10'3 (1.1-4.8); LYMPHOCYTES % (AUTO) 3.8 % (21-51); MEAN CORPUSCULAR HEMOGLOBIN 32.4 PG (27.0-31.0); MEAN CORPUSCULAR HGB CONC 35.1 g/dL (33.0-36.5); MEAN CORPUSCULAR VOLUME 92.5 FL (78-98); MEAN PLATELET VOLUME 9.1 FL (7.4-10.4); MONOCYTES # (AUTO) 0.6 X10'3 (0-0.9); MONOCYTES % (AUTO) 5.2 % (2-12); NEUTROPHILS # (AUTO) 9.7 X10'3 (1.8-7.7); NEUTROPHILS % (AUTO) 90.9 % (42-75); PLATELET COUNT 112 X10'3 (140-440); RED BLOOD COUNT 4.52 X10'6 (4.70-6.10); RED CELL DISTRIBUTION WIDTH 12.5 % (11.5-14.5); WHITE BLOOD COUNT 10.6 X10'3 (4.5-11.0)
[2020-09-09 19:45] LABS: ALANINE AMINOTRANSFERASE 26 U/L (12-78); ALBUMIN 3.8 G/DL (3.4-5.0); ALBUMIN/GLOBULIN RATIO 1.3 (1.1-1.5); ALKALINE PHOSPHATASE 89 IU/L (46-116); ANION GAP 11 (8-16); ASPARTATE AMINO TRANSFERASE 21 U/L (10-37); BLOOD UREA NITROGEN 19 MG/DL (7-18); BUN/CREATININE RATIO 16.1 (5.4-32.0); CALCIUM 8.5 MG/DL (8.5-10.1); CHLORIDE 101 MMOL/L (99-107); CREATININE 1.18 MG/DL (0.60-1.10); GLUCOSE 159 MG/DL (70-104); LIPASE 76 U/L (73-393); POTASSIUM 3.3 MMOL/L (3.5-5.1); SODIUM 138 MMOL/L (135-145); TOTAL PROTEIN 6.8 G/DL (6.4-8.2); eGFR 60 ML/MIN
[2020-09-09] MEDS ORDERED: normal saline 1000ML IV soln IVB ONE (22:15)
[2020-09-09] MEDS ORDERED: iohexol 300mg/ml 100ml inj. ONE (22:28)
[2020-09-09] MEDS ORDERED: CIPR-202 PO (23:59)
[2020-09-09] MEDS ORDERED: METR-159 PO (23:59)
[2020-09-10 00:09] VITALS: BP 128/65
[2020-09-10 00:16] LABS: CLARITY,URINE CLEAR (Clear); COLOR,URINE YELLOW (Yellow); GLUCOSE, URINE NEGATIVE (Neg); KETONES,URINE NEGATIVE (Neg); LEUKOCYTE ESTERASE ,URINE NEGATIVE (Neg); NITRITES, URINE NEGATIVE (Neg); OCCULT BLOOD,URINE NEGATIVE (Neg); PROTEIN,URINE NEGATIVE (Neg); UA COLLECTION TYPE URINAL
== END 2020-09-10 00:10 | disposition home or self-care (01) ==
LOC: ER 18:14
DX: K52.9 Noninfective gastroenteritis and colitis, unspecified (principal); Z20.822 Contact with and (suspected) exposure to COVID-19; R10.31 Right lower quadrant pain; R50.9 Fever, unspecified; R51.9 Headache, unspecified; R11.0 Nausea; I48.91 Unspecified atrial fibrillation; I25.10 Atherosclerotic heart disease of native coronary artery without angina pectoris; I25.2 Old myocardial infarction; Z98.890 Other specified postprocedural states; Z88.5 Allergy status to narcotic agent; Z88.8 Allergy status to other drugs, medicaments and biological substances; Z79.82 Long term (current) use of aspirin; Z79.2 Long term (current) use of antibiotics; Z79.899 Other long term (current) drug therapy
CPT/HCPCS: 36415; 71045; 74177; 80053; 81003; 83605; 83690; 84145; 85025; 87040; 87077; 87186; 87635; 93005; 99285; C9803; J7030; Q9967

== ENCOUNTER 2020-10-02 05:32 | Day surgery (SDC) | payer OTHER, MEDICARE ==
[2020-09-26 16:10] LABS: BASOPHILS % (AUTO) 0.6 % (0-1); EOSINOPHILS % (AUTO) 0.6 % (0-6); LYMPHOCYTES % (AUTO) 15.3 % (21-51); MEAN CORPUSCULAR HGB CONC 34.6 g/dL (33.0-36.5); MEAN CORPUSCULAR VOLUME 92.5 FL (78-98); MEAN PLATELET VOLUME 7.9 FL (7.4-10.4); MONOCYTES # (AUTO) 0.5 X10'3 (0-0.9); MONOCYTES % (AUTO) 7.5 % (2-12); PRE OP HEMOGLOBIN 12.5 g/dL (14.0-17.9); PRE OP PLATELET COUNT 212 X10'3 (140-440); RED BLOOD COUNT 3.89 X10'6 (4.70-6.10); RED CELL DISTRIBUTION WIDTH 12.6 % (11.5-14.5)
[2020-09-26 16:24] LABS: ALBUMIN 3.3 G/DL (3.4-5.0); ALBUMIN/GLOBULIN RATIO 0.9 (1.1-1.5); ALKALINE PHOSPHATASE 117 IU/L (46-116); BLOOD UREA NITROGEN 18 MG/DL (7-18); BUN/CREATININE RATIO 16.1 (5.4-32.0); CALCIUM 8.9 MG/DL (8.5-10.1); CHLORIDE 107 MMOL/L (99-107); CREATININE 1.12 MG/DL (0.60-1.10); PRE OP ALT 45 U/L (30-65); PRE OP ANION GAP 6 (8-16); PRE OP AST 24 U/L (10-37); PRE OP BILIRUB, TOTAL 0.8 MG/DL (0.0-1.0); PRE OP GLUCOSE 124 MG/DL (70-104); PRE OP POTASSIUM 3.7 MMOL/L (3.4-5.1); PRE OP SODIUM 144 MMOL/L (135-145); TOTAL CARBON DIOXIDE 31.5 MMOL/L (24-32); TOTAL PROTEIN 6.8 G/DL (6.4-8.2); eGFR 64 ML/MIN
[~2020-10-02] VITALS: Ht 177.8 cm; Wt 97.5 kg
[2020-10-02] VITALS (12 sets, daily range): BP systolic 93–122; BP diastolic 50–64
[~2020-10-02 05:32] MED LIST changes: +INDOCYANINE GREEN 25 MG/10 ML VIAL IV ONE; +cefazolin/dext.iso 2gm/100ml IV ONE; +famotidine 20mg tablet PO ONE; +ringers solution, lacted 1,000 ML IV SCH
[2020-10-02] MEDS ORDERED: LIDOcaine 1% (10mg/ml) 2ml vial ONE (05:55)
[2020-10-02] MEDS ORDERED: LIDOcaine 1% 30ml preserv. free vial ONE (07:06)
[2020-10-02] MEDS ORDERED: BUPIVAcaine/PF 2.5 mg/ml (0.25%) 30ml vial ONE (07:07)
[2020-10-02] MEDS ORDERED: propofol inj 20 ML IV ONE (07:25)
[2020-10-02] MEDS ORDERED: fentaNYL/PF 50MCG/1 ML 2ML syringe ONE (07:25)
[2020-10-02] MEDS ORDERED: LIDOcaine 2% (20mg/ml) 5ml vial ONE (07:25)
[2020-10-02] MEDS ORDERED: meperidine/PF 25mg/ml syringe ONE (07:25)
[2020-10-02] MEDS ORDERED: midazolam 1 mg/ML 2ml injection ONE (07:25)
[2020-10-02] MEDS ORDERED: rocuronium 10mg/ml inj IV ONE (07:27)
[2020-10-02] MEDS ORDERED: morphine 2 MG/ML inj. syringe IV PRN (07:30)
[2020-10-02] MEDS ORDERED: proCHLORperazine 10 MG/2 ml inj IV PRN (07:30)
[2020-10-02] MEDS ORDERED: ondansetron/PF 4mg/2ml inj IV PRN (07:30)
[2020-10-02] MEDS ORDERED: meperidine/PF 25mg/ml syringe IV PRN ×3 (07:30)
[2020-10-02] MEDS ORDERED: morphine 4 MG/ML inj SYRINge IV PRN (07:30)
[2020-10-02] MEDS ORDERED: ringers solution, lacted 1,000 ML IV SCH (07:30)
[2020-10-02] MEDS ORDERED: dexamethasone sod phosphate 4mg/ml inj. ONE (08:09)
[2020-10-02] MEDS ORDERED: ondansetron/PF 4mg/2ml inj ONE (08:09)
[2020-10-02] MEDS ORDERED: neostigmine methylsulfate 1 MG/ML 10ml vial ONE (09:05)
[2020-10-02] MEDS ORDERED: glycopyrrolate 0.2mg/ml inj ONE (09:05)
--- NOTE | 2020-10-02 09:12 | NUR ---
Received from OR via [facility], accompanied by Anesthesiologist DR KITCHEN and report given by Anesthesiologist. PT DROWSY, DENIES PAIN, ABDOMEN W/3 LAP SITES W/BANDAIDS CDI. Addendum: 10/02/20 at 0938 by Candy Jonas RN Amended: Links added.
[2020-10-02] MEDS ORDERED: HYDROcodone/acetaminophen 5mg/325mg tablet PO PRN ×2 (09:25)
--- NOTE | 2020-10-02 11:02 | NUR ---
PT UP AND ABLE TO AMBULATE SAFELY, DENIES PAIN, NAUSEA SUBSIDED. D/C INSTRUCTIONS GIVEN TO AND GONE OVER W/PT AND PTS WHO VERBALIZED UNDERSTANDING. PT D/CD TO HOME VIA W/C TO PRIVATE VEHICLE W/O INCIDENT. Addendum: 10/02/20 at 1120 by Candy Jonas RN Amended: Links added.
== END 2020-10-02 11:02 | disposition home or self-care (01) ==
LOC: PAS 05:32
PROVIDERS: ATTEND Surgery
DX: K80.10 Calculus of gallbladder with chronic cholecystitis without obstruction (principal); K82.8 Other specified diseases of gallbladder; K76.0 Fatty (change of) liver, not elsewhere classified; G47.30 Sleep apnea, unspecified; K21.9 Gastro-esophageal reflux disease without esophagitis; I10 Essential (primary) hypertension; I25.10 Atherosclerotic heart disease of native coronary artery without angina pectoris; E66.01 Morbid (severe) obesity due to excess calories; Z68.30 Body mass index [BMI] 30.0-30.9, adult; Z96.653 Presence of artificial knee joint, bilateral; Z95.1 Presence of aortocoronary bypass graft; Z87.891 Personal history of nicotine dependence; Z95.0 Presence of cardiac pacemaker; Z88.5 Allergy status to narcotic agent; Z95.5 Presence of coronary angioplasty implant and graft; Z79.899 Other long term (current) drug therapy
CPT/HCPCS: 36415; 47563; 80053; 82948; 85025; J0780; J1100; J2001; J2175; J2250; J2405; J2704; J2710; J3010; J3490; J7120; S2900; A4215; A4618; A7000

== ENCOUNTER 2020-11-08 14:32 | Emergency (ER) | payer OTHER, MEDICARE ==
[~2020-11-08] VITALS: Ht 177.8 cm; Wt 90.9 kg
[~2020-11-08 14:32] MED LIST changes: -INDOCYANINE GREEN 25 MG/10 ML VIAL IV ONE; -cefazolin/dext.iso 2gm/100ml IV ONE; -famotidine 20mg tablet PO ONE; -ringers solution, lacted 1,000 ML IV SCH
[2020-11-08] MEDS ORDERED: methylPREDNISolone sod succ/PF 40mg inj. IV ONE (14:55)
[2020-11-08] MEDS ORDERED: methylPREDNISolone sod succ/PF 40mg inj. IV SCH (14:55)
[2020-11-08] MEDS ORDERED: diazepam inj 5 MG/ML inj. IV ONE (14:55)
[2020-11-08] MEDS ORDERED: ketorolac trometh. 30mg/ml inj. IV ONE (14:55)
[2020-11-08] MEDS ORDERED: methylPREDNISolone sod succ 125mg/2ml vial IV ONE (15:28)
[2020-11-08] MEDS ORDERED: MELO-102 PO (16:09)
[2020-11-08] MEDS ORDERED: DIAZ5TAB PO (16:09)
[2020-11-08 16:13] VITALS: BP 120/46
[2020-11-08] MEDS ORDERED: morphine 4 MG/ML inj SYRINge IV ONE ×2 (16:20→17:00)
[2020-11-08 16:50] LABS: BASOPHILS % (AUTO) 0.1 % (0-1); EOSINOPHILS % (AUTO) 0.3 % (0-6); HEMATOCRIT 33.8 % (42.0-52.0); HEMOGLOBIN 11.6 g/dl (14.0-17.9); LYMPHOCYTES # (AUTO) 0.5 X10'3 (1.1-4.8); LYMPHOCYTES % (AUTO) 4.5 % (21-51); MEAN CORPUSCULAR HEMOGLOBIN 30.5 PG (27.0-31.0); MEAN CORPUSCULAR HGB CONC 34.4 g/dL (33.0-36.5); MEAN CORPUSCULAR VOLUME 88.7 FL (78-98); MEAN PLATELET VOLUME 8.2 FL (7.4-10.4); MONOCYTES # (AUTO) 0.5 X10'3 (0-0.9); MONOCYTES % (AUTO) 4.5 % (2-12); NEUTROPHILS # (AUTO) 9.7 X10'3 (1.8-7.7); NEUTROPHILS % (AUTO) 90.6 % (42-75); PLATELET COUNT 149 X10'3 (140-440); RED BLOOD COUNT 3.81 X10'6 (4.70-6.10); RED CELL DISTRIBUTION WIDTH 12.9 % (11.5-14.5); WHITE BLOOD COUNT 10.7 X10'3 (4.5-11.0)
[2020-11-08 17:04] LABS: ALANINE AMINOTRANSFERASE 36 U/L (12-78); ALBUMIN 2.9 G/DL (3.4-5.0); ALBUMIN/GLOBULIN RATIO 0.8 (1.1-1.5); ALKALINE PHOSPHATASE 101 IU/L (46-116); ANION GAP 10 (8-16); ASPARTATE AMINO TRANSFERASE 23 U/L (10-37); BILIRUBIN,TOTAL 0.7 MG/DL (0.1-1.0); BLOOD UREA NITROGEN 27 MG/DL (7-18); BUN/CREATININE RATIO 22.5 (5.4-32.0); CALCIUM 8.7 MG/DL (8.5-10.1); CHLORIDE 101 MMOL/L (99-107); GLUCOSE 140 MG/DL (70-104); POTASSIUM 3.8 MMOL/L (3.5-5.1); SODIUM 138 MMOL/L (135-145); TOTAL CARBON DIOXIDE 27.5 MMOL/L (24-32); TOTAL PROTEIN 6.7 G/DL (6.4-8.2); eGFR 59 ML/MIN
== END 2020-11-08 17:38 | disposition home or self-care (01) ==
LOC: ER 14:33
DX: M54.5 Low back pain (principal); R10.84 Generalized abdominal pain; I48.91 Unspecified atrial fibrillation; I25.10 Atherosclerotic heart disease of native coronary artery without angina pectoris; I25.2 Old myocardial infarction; Z98.890 Other specified postprocedural states; Z88.5 Allergy status to narcotic agent; Z88.8 Allergy status to other drugs, medicaments and biological substances; Z79.82 Long term (current) use of aspirin; Z79.899 Other long term (current) drug therapy
CPT/HCPCS: 36415; 80053; 85025; 96374; 96375; 96376; 99284; J1885; J2270; J2930; J3360

== ENCOUNTER 2020-11-28 18:21 | Emergency (ER) | payer OTHER, MEDICARE ==
[~2020-11-28] VITALS: Ht 177.8 cm; Wt 92.3 kg
[~2020-11-28 18:21] MED LIST changes: +DIAZ5TAB PO; +MELO-102 PO; -OMEG1CAP PO; +OMEG1CAP61 PO
[2020-11-28] MEDS ORDERED: tranexamic acid 1gm/0.7% sal. 100 ML IV ONE (18:50)
[2020-11-28 18:52] LABS: BASOPHILS % (AUTO) 0.1 % (0-1); EOSINOPHILS % (AUTO) 0.5 % (0-6); HEMATOCRIT 28.2 % (42.0-52.0); HEMOGLOBIN 9.8 g/dl (14.0-17.9); LYMPHOCYTES # (AUTO) 0.8 X10'3 (1.1-4.8); LYMPHOCYTES % (AUTO) 12.3 % (21-51); MEAN CORPUSCULAR HEMOGLOBIN 30.1 PG (27.0-31.0); MEAN CORPUSCULAR HGB CONC 34.8 g/dL (33.0-36.5); MEAN CORPUSCULAR VOLUME 86.7 FL (78-98); MEAN PLATELET VOLUME 7.7 FL (7.4-10.4); MONOCYTES # (AUTO) 0.5 X10'3 (0-0.9); MONOCYTES % (AUTO) 7.4 % (2-12); NEUTROPHILS # (AUTO) 5.3 X10'3 (1.8-7.7); NEUTROPHILS % (AUTO) 79.7 % (42-75); PLATELET COUNT 196 X10'3 (140-440); RED BLOOD COUNT 3.25 X10'6 (4.70-6.10); RED CELL DISTRIBUTION WIDTH 14.2 % (11.5-14.5); WHITE BLOOD COUNT 6.6 X10'3 (4.5-11.0)
[2020-11-28 18:58] LABS: PARTIAL THROMBOPLASTIN TIME 33 SECONDS (22-32)
[2020-11-28 19:03] LABS: ALANINE AMINOTRANSFERASE 35 U/L (12-78); ALBUMIN 2.9 G/DL (3.4-5.0); ALBUMIN/GLOBULIN RATIO 0.8 (1.1-1.5); ALKALINE PHOSPHATASE 130 IU/L (46-116); ANION GAP 9 (8-16); ASPARTATE AMINO TRANSFERASE 21 U/L (10-37); BILIRUBIN,TOTAL 0.7 MG/DL (0.1-1.0); BLOOD UREA NITROGEN 18 MG/DL (7-18); BUN/CREATININE RATIO 14.9 (5.4-32.0); CHLORIDE 99 MMOL/L (99-107); CREATININE 1.21 MG/DL (0.60-1.10); GLUCOSE 132 MG/DL (70-104); POTASSIUM 4.3 MMOL/L (3.5-5.1); SODIUM 135 MMOL/L (135-145); TOTAL CARBON DIOXIDE 26.7 MMOL/L (24-32); TOTAL PROTEIN 6.6 G/DL (6.4-8.2); eGFR 59 ML/MIN
[2020-11-28] MEDS ORDERED: tranexamic acid 100mg/ml inj. IV ONE (19:05)
[2020-11-28 19:06] LABS: TROPONIN I < 0.04 NG/ML (0.0-0.05)
[2020-11-28] MEDS ORDERED: HUMAN PROTHROMBIN COMPLEX PCC IV ONE (19:10)
[2020-11-28] MEDS ORDERED: iohexol 350MG/ML 100ml bottle IV ONE (19:28)
[2020-11-28] MEDS ORDERED: niCARDipine-NS 40mg/200ml IVPB 200 ML IV SCH (21:45)
--- NOTE | 2020-11-28 22:31 | NUR ---
report given to jose at [facility]. pt started on platlet transfusion to be continued in flight. pt stable at time of transfer with ems to helicopter.
[2020-11-28 22:32] VITALS: BP 117/68
== END 2020-11-28 22:35 | disposition short-term general hospital (02) ==
LOC: ER 18:22
DX: R58 Hemorrhage, not elsewhere classified (principal); Z20.822 Contact with and (suspected) exposure to COVID-19; N18.9 Chronic kidney disease, unspecified; D50.0 Iron deficiency anemia secondary to blood loss (chronic); R41.0 Disorientation, unspecified; M54.89 Other dorsalgia; I48.91 Unspecified atrial fibrillation; I25.10 Atherosclerotic heart disease of native coronary artery without angina pectoris; I25.2 Old myocardial infarction; Z88.5 Allergy status to narcotic agent; Z88.8 Allergy status to other drugs, medicaments and biological substances; Z79.82 Long term (current) use of aspirin; Z79.899 Other long term (current) drug therapy
CPT/HCPCS: 36415; 36430; 70450; 70496; 70498; 71045; 80053; 82948; 84484; 85025; 85610; 85730; 86885; 86900; 86901; 87635; 93005; 96374; 96375; 99291; 99292; C9132; C9803; P9035; Q9967; 96365; 96366